=== PATIENT | female | born 1975 | race Caucasian/White ===

== ENCOUNTER 2017-04-15 09:46 | Emergency (ER) | payer SELFPAY ==
[2017-04-15 09:58] VITALS: BMI 22.3
--- NOTE | 2017-04-15 09:59 | PDOC ---
History of Present Illness - General History Source: Patient Exam Limitations: No Limitations - History of Present Illness Initial Comments: 04/15/17 10:15 The patient is a 41 year old female with no significant past medical history, presenting to the Emergency Department with intermittent chest pain since this morning. The patient reports that she was woken from sleep with chest pain that she describes as a tight and stabbing pain at her mid chest, or under her breasts, radiating to her back. She admits that certain movements or positions exacerbates the pain. She denies any alleviating factors. She also admits to slight shortness of breath, lightheadedness, nausea, and night sweats. She denies previously experiencing similar chest pain. The patient states that she has an IUD. The patient denies fever, or cough. Patient denies palpitations. Patient denies vomiting, or diarrhea. Patient denies headache, or visual changes. Familial Hx: hypertension Social Hx: everyday cigarette smoker, 1/2 PPD Surgical Hx: appendectomy <Ni Downing - Last Filed: 04/15/17 10:50> <Ceci Box - Last Filed: 04/15/17 11:14> - General Chief Complaint: Chest Pain Stated Complaint: CHEST PAIN Time Seen by Provider: 04/15/17 09:59 Past History <Ni Downing - Last Filed: 04/15/17 10:50> - Past Medical History Other medical history: NONE - Immunization History Immunization Up to Date: Yes - Psycho/Social/Smoking Cessation Hx Anxiety: No Suicidal Ideation: No Smoking History: Current every day smoker Number of Cigarettes Smoked Daily: 10 Information on smoking cessation initiated: Yes 'Breaking Loose' booklet given: 04/15/17 Hx Alcohol Use: Yes (SOCIAL) Drug/Substance Use Hx: No Substance Use Type: None <Ceci Box - Last Filed: 04/15/17 11:14> - Past Medical History Allergies/Adverse Reactions: Allergies Allergy/AdvReac Type Severity Reaction Status Date / Time No Known Allergies Allergy Verified 04/15/17 09:53 Home Medications: Ambulatory Orders NK [No Known Home Medication] 04/15/17 Review of Systems - Review of Systems Able to Perform ROS?: Yes Comments:: 04/15/17 10:16 CONSTITUTIONAL: Present: + night sweats, + lightheadedness Absent: fever, no fatigue EYES: Absent: visual changes ENT: Absent: ear pain, no sore throat CARDIOVASCULAR: Present: + intermittent chest pain Absent: no palpitations RESPIRATORY: Present: + shortness of breath Absent: cough GI: Present: + nausea Absent: abdominal pain, no vomiting, no constipation, no diarrhea GENITOURINARY: Absent: dysuria, no frequency, no hematuria MUSCULOSKELETAL: Absent: back pain, no arthralgia, no myalgia SKIN: Absent: rash NEURO: Absent: headache <Ni Downing - Last Filed: 04/15/17 10:50> *Physical Exam - Vital Signs Last Vital Signs Temp Pulse Resp BP Pulse Ox 98.2 F 75 20 147/73 100 04/15/17 09:47 04/15/17 09:47 04/15/17 09:47 04/15/17 09:47 04/15/17 09:47 - Physical Exam Comments: GENERAL: Well developed, well nourished. Awake and alert. No acute distress. HEENT: Normocephalic, atraumatic. PERRLA, EOMI. No conjunctival pallor. Sclera are non- icteric. Moist mucous membranes. Oropharynx is clear. NECK: Supple. Full ROM. No JVD. Carotid pulses 2+ and symmetric, without bruits. No thyromegaly. No lymphadenopathy. CARDIOVASCULAR: Regular rate and rhythm. No murmurs, rubs, or gallops. Distal pulses are 2+ and symmetric. PULMONARY: No evidence of respiratory distress. Lungs clear to auscultation bilaterally. No wheezing, rales or rhonchi. ABDOMINAL: Soft. Non-tender. Non-distended. No rebound or guarding. No organomegaly. Normoactive bowel sounds. MUSCULOSKELETAL Normal range of motion at all joints. No bony deformities or tenderness. No CVA tenderness. EXTREMITIES: No cyanosis. No clubbing. No edema. No calf tenderness. SKIN: Warm and dry. Normal capillary refill. No rashes. No jaundice. NEUROLOGICAL: Alert, awake, appropriate. No focal neurological deficits. <Ni Downing - Last Filed: 04/15/17 10:50> - Vital Signs Last Vital Signs Temp Pulse Resp BP Pulse Ox 98.2 F 75 20 147/73 100 04/15/17 09:47 04/15/17 09:47 04/15/17 09:47 04/15/17 09:47 04/15/17 09:47 <Ceci Box - Last Filed: 04/15/17 11:14> Heart Score/ECG Review #1 ECG reviewed & interpreted by me at: 10:50 (EKG reviewed by Dr. Box, EKG normal, sinus rhythm normal, axis normal, rate normal) <Ni Downing - Last Filed: 04/15/17 10:50> Medical Decision Making - Medical Decision Making 04/15/17 10:41 Pt presents to the ED complaining of a one day history of pleuritic chest pain. Perc negative. Heart score is 0. Pain is most likely musculoskeletal. Patient is at extremely low risk for serious cardiopulmonay disease. Will check CXR and discharge home if cxr is negative. <Ceci Box - Last Filed: 04/15/17 11:14> *DC/Admit/Observation/Transfer - Attestations Scribe Attestion: 04/15/17 10:18 Documentation prepared by Ni Downing, acting as medical microbiologist for Ceci Box MD. <Ni Downing - Last Filed: 04/15/17 10:50> - Discharge Dispostion Admit: No <Ceci Box - Last Filed: 04/15/17 11:14> Diagnosis at time of Disposition: Chest pain Qualifiers: Chest pain type: precordial pain Qualified Code(s): R07.2 - Precordial pain - Discharge Dispostion Disposition: HOME Condition at time of disposition: Good - Patient Instructions Printed Discharge Instructions: DI for Atypical Chest Pain Additional Instructions: Return to the ED for severe chest pain or shortness of breath, passing out. Make sure you follow up with your doctor within one week.
[2017-04-15] MEDS ORDERED: KETOROLAC TROMETHAMINE 60 MG/2 ML VIAL IM ONE (10:16)
[2017-04-15] MEDS ORDERED: KETOROLAC TROMETHAMINE 60 MG/2 ML VIAL ONE (10:46)
[2017-04-15 11:19] VITALS: BP 132/65; PULSE 70; TEMP 97.8
--- NOTE | 2017-04-16 13:29 | EKG ---
Test Reason : Blood Pressure : / mmHG Vent. Rate : 062 BPM Atrial Rate : 062 BPM P-R Int : 136 ms QRS Dur : 084 ms QT Int : 414 ms P-R-T Axes : 053 028 037 degrees QTc Int : 420 ms NORMAL SINUS RHYTHM WITH SINUS ARRHYTHMIA NORMAL ECG NO PREVIOUS ECGS AVAILABLE Confirmed by RODRÍGUEZ GREEN MD ([id number]) on 04/16/2017 1:29:24 PM Referred By: Confirmed By:RODRÍGUEZ GREEN MD
== END 2017-04-15 11:19 | disposition home or self-care (01) ==
LOC: JER 09:46
PROC: 3E0233Z Introduction of Anti-inflammatory into Muscle, Percutaneous Approach (ICD-10-PCS; principal; 2017-04-15)
DX: R07.2 Precordial pain (principal); F17.210 Nicotine dependence, cigarettes, uncomplicated
CPT/HCPCS: 71020-TC; 84703; 93005; 93010; 99283-25

== ENCOUNTER 2017-10-31 11:17 | Emergency (ER) | payer OTHER ==
[2017-10-31 11:41] VITALS: BP 114/81; PULSE 111; TEMP 99; BMI 23.3
--- NOTE | 2017-10-31 13:48 | PDOC ---
History of Present Illness - General Chief Complaint: Cold Symptoms Stated Complaint: EAR PROBLEM, BACK PAIN Time Seen by Provider: 10/31/17 12:27 History Source: Patient Exam Limitations: No Limitations - History of Present Illness Initial Comments: 10/31/17 13:44 42 yr female no PMHX c/o body aches fever, sore throat for 3 days. no abd pain neg nvd. Past History - Past Medical History Allergies/Adverse Reactions: Allergies Allergy/AdvReac Type Severity Reaction Status Date / Time No Known Allergies Allergy Verified 10/31/17 11:38 Home Medications: Ambulatory Orders Oseltamivir Phosphate [Tamiflu] 75 mg PO BID #10 capsule 10/31/17 COPD: No DVT: No Dementia: No Diabetes: No - Surgical History GI Surgery: Yes (appendectomy) - Immunization History Immunization Up to Date: Yes - Suicide/Smoking/Psychosocial Hx Smoking History: Current every day smoker Number of Cigarettes Smoked Daily: 10 Information on smoking cessation initiated: No 'Breaking Loose' booklet given: 04/15/17 Hx Alcohol Use: No Drug/Substance Use Hx: No Substance Use Type: None *Physical Exam - Vital Signs Last Vital Signs Temp Pulse Resp BP Pulse Ox 99.0 F 111 H 15 114/81 99 10/31/17 11:38 10/31/17 11:38 10/31/17 11:38 10/31/17 11:38 10/31/17 11:38 - Physical Exam General Appearance: Yes: Nourished, Appropriately Dressed HEENT: positive: EOMI, MIK, Normal ENT Inspection, TMs Normal, Pharynx Normal Neck: positive: Supple. negative: Tender Respiratory/Chest: positive: Lungs Clear, Normal Breath Sounds. negative: Chest Tender Cardiovascular: positive: Regular Rhythm, Regular Rate Gastrointestinal/Abdominal: positive: Normal Bowel Sounds, Soft Musculoskeletal: positive: Normal Inspection Extremity: positive: Normal Capillary Refill, Normal Inspection, Normal Range of Motion Integumentary: positive: Normal Color, Dry, Warm Neurologic: positive: Fully Oriented, Alert, Normal Mood/Affect, Normal Response , Motor Strength 5/5 ED Treatment Course - ADDITIONAL ORDERS Additional order review: 10/31/17 12:45 Influenza Types A,B Antigen (SALOMÓN) - Preliminary Nasopharyngeal Swab - Preliminary Medical Decision Making - Medical Decision Making 10/31/17 13:45 cc: fever, sore throat eye pain headache for 3 days nyquil taken last night vitals stable non toxic will swab for flu *DC/Admit/Observation/Transfer Diagnosis at time of Disposition: Influenza B - Discharge Dispostion Disposition: HOME Condition at time of disposition: Fair - Prescriptions Prescriptions: Oseltamivir Phosphate [Tamiflu] 75 mg PO BID #10 capsule - Referrals Referrals: Kajal Moss MD [Primary Care Provider] - - Patient Instructions Printed Discharge Instructions: DI for Influenza -- Adult Additional Instructions: drink pleanty of fluids rest at home and avoid crowds, school, work, large gatherings avoid young babies and elderly persons wash hands often take motrin or tylenol as directed for fever or pain follow with your doctor in 1-2 days for follow up return to ER for any worsening symptoms tamiflu as directed it may cause stomach upset and diarrhea take with caution - Post Discharge Activity
== END 2017-10-31 13:51 | disposition home or self-care (01) ==
LOC: JERFT 11:17
DX: J10.1 Influenza due to other identified influenza virus with other respiratory manifestations (principal); B97.89 Other viral agents as the cause of diseases classified elsewhere
CPT/HCPCS: 87804; 99281-25

== ENCOUNTER 2018-12-24 15:02 | Emergency (ER) | payer OTHER ==
[2018-12-24 15:19] VITALS: BP 127/88; PULSE 80; TEMP 98.1; BMI 21.6
[2018-12-24 18:00] LABS: BASO % 0.7 % (0-2.0); EOS % 12.8 % (0-4.5); HEMOGLOBIN 14.5 GM/dL (10.7-15.3); LYMPH % 32.9 % (8-40); MCH 33.5 pg (25.7-33.7); MCHC 35.3 g/dl (32.0-36.0); MEAN CELL VOLUME 94.7 fl (80-96); MEAN PLT VOLUME 8.7 fl (7.5-11.1); NEUT % 43.6 % (42.8-82.8); PLATELET COUNT 217 K/MM3 (134-434); RBC 4.33 M/mm3 (3.60-5.2); RDW 12.6 % (11.6-15.6); WHITE BLOOD COUNT 6.8 K/mm3 (4.0-10.0)
[2018-12-24 18:20] LABS: ALBUMIN 3.4 g/dl (3.4-5.0); ALK PHOS 59 U/L (45-117); ANION GAP 3 MMOL/L (8-16); BILIRUBIN,TOTAL 0.8 mg/dL (0.2-1); BLOOD UREA NITROGEN 18 mg/dL (7-18); CALCIUM 8.3 mg/dL (8.5-10.1); CHLORIDE 108 mmol/L (98-107); CO2 28 mmol/L (21-32); CREATININE 0.6 mg/dL (0.55-1.3); GLUCOSE,RANDOM 73 mg/dL (74-106); POTASSIUM 3.8 mmol/L (3.5-5.1); SGOT/AST 22 U/L (15-37); SGPT/ALT 25 U/L (13-61); SODIUM 139 mmol/L (136-145); TOT PROT 6.5 g/dl (6.4-8.2)
[2018-12-24 18:24] LABS: EPI CELLS 0.6 /HPF (0-5); HYALINE CASTS 6 /hpf (0-8); URINE APPEARANCE CLEAR; URINE BACTERIA 8.298 /hpf (NEGATIVE); URINE BILIRUBIN NEGATIVE (NEGATIVE); URINE COLOR YELLOW; URINE GLUCOSE (UA) NEGATIVE (NEGATIVE); URINE KETONE NEGATIVE (NEGATIVE); URINE LEUK ESTERASE TRACE (NEGATIVE); URINE NITRITE NEGATIVE (NEGATIVE); URINE PROTEIN NEGATIVE (NEGATIVE); URINE RBC 2 /hpf (0-4); URINE WBC 4 /hpf (0-5)
--- NOTE | 2018-12-24 18:53 | PDOC ---
History of Present Illness - General Chief Complaint: Pain Stated Complaint: ABDOMINAL PAIN Time Seen by Provider: 12/24/18 16:20 History Source: Patient Exam Limitations: No Limitations - History of Present Illness Travel History: No Initial Comments: 12/24/18 18:47 43 y/o female presents to ED with suprapubic pain intermittently x 3-4 months with vaginal spotting for a few weeks. Pt denies Timing/Duration: reports: constant Quality: reports: mild, cramping Abdominal Pain Onset Location: reports: suprapubic Pain Radiation: reports: no radiation Aggravating Factors: improves with: None Alleviating Factors: improves with: None Past History - Travel Traveled outside of the country in the last 30 days: No Close contact w/someone who was outside of country & ill: No - Past Medical History Allergies/Adverse Reactions: Allergies Allergy/AdvReac Type Severity Reaction Status Date / Time No Known Allergies Allergy Verified 12/24/18 18:59 Home Medications: Ambulatory Orders NK [No Known Home Medication] 12/24/18 COPD: No DVT: No Dementia: No Diabetes: No - Surgical History GI Surgery: Yes (appendectomy) - Immunization History Immunization Up to Date: Yes - Suicide/Smoking/Psychosocial Hx Smoking History: Current every day smoker Number of Cigarettes Smoked Daily: 5 Information on smoking cessation initiated: No 'Breaking Loose' booklet given: 04/15/17 Hx Alcohol Use: No Drug/Substance Use Hx: No Substance Use Type: None Patient Lives Alone: No Lives with/in: spouse/SO Review of Systems - Review of Systems Able to Perform ROS?: No Is the patient limited Syrian proficient: No Constitutional: No: Symptoms Reported HEENTM: No: Symptoms Reported Respiratory: No: Symptoms reported Cardiac (ROS): No: Symptoms Reported ABD/GI: Yes: Abdominal cramping. No: Poor Appetite, Poor Fluid Intake : No: Symptoms Reported Musculoskeletal: No: Symptoms Reported Integumentary: No: Symptoms Reported Neurological: No: Symptoms reported Endocrine: No: Symptoms Reported Hematologic/Lymphatic: No: Symptoms Reported *Physical Exam - Vital Signs Last Vital Signs Temp Pulse Resp BP Pulse Ox 98.1 F 80 16 127/88 99 12/24/18 15:16 12/24/18 15:16 12/24/18 15:16 12/24/18 15:16 12/24/18 15:16 - Physical Exam General Appearance: Yes: Nourished, Appropriately Dressed. No: Apparent Distress HEENT: positive: EOMI, MIK. negative: Pale Conjunctivae Neck: positive: Supple Respiratory/Chest: positive: Lungs Clear, Normal Breath Sounds. negative: Respiratory Distress, Accessory Muscle Use Cardiovascular: positive: Regular Rhythm, Regular Rate. negative: Murmur Female Pelvic Exam: positive: normal external exam. negative: CMT, discharge, adnexal tenderness, vaginal bleeding Gastrointestinal/Abdominal: positive: Soft, Tenderness (mid suprapubic) Musculoskeletal: negative: CVA Tenderness Extremity: positive: Normal Capillary Refill Integumentary: positive: Normal Color, Warm, Moist Neurologic: positive: Motor Strength 5/5 (ambulatory) ED Treatment Course - LABORATORY CBC & Chemistry Diagram: 12/24/18 17:25 12/24/18 17:25 - ADDITIONAL ORDERS Additional order review: Laboratory Results 12/24/18 12/24/18 12/24/18 17:25 17:25 06:31 Sodium 139 Potassium 3.8 Chloride 108 H Carbon Dioxide 28 Anion Gap 3 L BUN 18 Creatinine 0.6 Creat Clearance w eGFR 109.11 Random Glucose 73 L Calcium 8.3 L Total Bilirubin 0.8 AST 22 ALT 25 Alkaline Phosphatase 59 Total Protein 6.5 Albumin 3.4 Urine Color Yellow Urine Appearance Clear Urine pH 7.0 D Ur Specific [place] 1.022 Urine Protein Negative Urine Glucose (UA) Negative Urine Ketones Negative Urine Blood Negative Urine Nitrite Negative Urine Bilirubin Negative Urine Urobilinogen 1.0 Ur Leukocyte Esterase Trace Urine WBC (Auto) 4 Urine RBC (Auto) 2 Urine Casts (Auto) 6 U Epithel Cells (Auto) 0.6 Urine Bacteria (Auto) 8.298 Urine HCG, Qual Negative 12/24/18 17:25 RBC 4.33 MCV 94.7 MCHC 35.3 RDW 12.6 MPV 8.7 Neutrophils % 43.6 D Lymphocytes % 32.9 D Monocytes % 10.0 Eosinophils % 12.8 H D Basophils % 0.7 - RADIOLOGY Radiology Studies Ordered: Category Date Time Status TRANSVAGINAL ULTRASOUND US [US] Stat Ultrasound 12/24/18 17:18 Taken Medical Decision Making - Medical Decision Making 12/24/18 18:06 CC: lower abd cramping intermittently x 3-4 months with light brown vaginal discharge x 2 weeks Exam: Mild suprapubic tenderness with no vag discharge Plan: Ua, hcg, labs, u/s 12/24/18 19:01 Laboratory Tests 12/24/18 12/24/18 12/24/18 06:31 17:25 17:25 WBC 6.8 Hgb 14.5 Hct 41.0 Neutrophils % 43.6 D Sodium 139 Potassium 3.8 Chloride 108 H Carbon Dioxide 28 Anion Gap 3 L BUN 18 Creatinine 0.6 Creat Clearance w eGFR 109.11 Random Glucose 73 L Calcium 8.3 L Total Bilirubin 0.8 AST 22 ALT 25 Alkaline Phosphatase 59 Total Protein 6.5 Albumin 3.4 Urine Ketones Negative Urine Bilirubin Negative Ur Leukocyte Esterase Trace Urine HCG, Qual 12/24/18 17:25 WBC Hgb Hct Neutrophils % Sodium Potassium Chloride Carbon Dioxide Anion Gap BUN Creatinine Creat Clearance w eGFR Random Glucose Calcium Total Bilirubin AST ALT Alkaline Phosphatase Total Protein Albumin Urine Ketones Urine Bilirubin Ur Leukocyte Esterase Urine HCG, Qual Negative Ultrasound shows no acute findings. Recommended to take motrin and f/u with [facility] [employer] [facility]. *DC/Admit/Observation/Transfer Diagnosis at time of Disposition: Abdominal pain - Discharge Dispostion Disposition: HOME Condition at time of disposition: Good - Referrals - Patient Instructions Printed Discharge Instructions: DI for Abdominal Pain-Adult Additional Instructions: Please take Motrin 600mg for pain. Follow up with your [facility] [facility] [facility]. - Post Discharge Activity Forms/Work/School Notes: Back to Work
== END 2018-12-24 19:16 | disposition home or self-care (01) ==
LOC: JER 15:02
DX: R10.30 Lower abdominal pain, unspecified (principal)
CPT/HCPCS: 36415; 76830-TC; 80053; 81003; 84703; 85025; 87086; 99283-25

== ENCOUNTER 2020-10-06 10:51 | Emergency (ER) | payer OTHER ==
[2020-10-06 11:30] VITALS: BP 134/82; PULSE 88; TEMP 98; BMI 25.7
[2020-10-06 12:44] LABS: BASO % 0.7 % (0-2.0); EOS % 6.2 % (0-4.5); HEMATOCRIT 29.9 % (32.4-45.2); HEMOGLOBIN 9.9 GM/dL (10.7-15.3); LYMPH % 23.7 % (8-40); MCH 28.7 pg (25.7-33.7); MCHC 33.1 g/dl (32.0-36.0); MEAN CELL VOLUME 86.7 fl (80-96); MEAN PLT VOLUME 8.7 fl (7.5-11.1); MONO % 8.3 % (3.8-10.2); NEUT % 61.1 % (42.8-82.8); PLATELET COUNT 232 K/MM3 (134-434); RBC 3.45 M/mm3 (3.60-5.2); RDW 16.6 % (11.6-15.6); WHITE BLOOD COUNT 4.2 K/mm3 (4.0-10.0)
[2020-10-06 13:08] LABS: ALBUMIN 3.4 g/dl (3.4-5.0); BLOOD UREA NITROGEN 10.4 mg/dL (7-18); CALCIUM 8.5 mg/dL (8.5-10.1)
[2020-10-06 13:12] LABS: CREATININE 0.8 mg/dL (0.55-1.3)
[2020-10-06 13:13] LABS: BILIRUBIN,TOTAL 0.7 mg/dL (0.2-1); TOT PROT 6.3 g/dl (6.4-8.2)
[2020-10-06 13:18] LABS: EPI CELLS 10 /uL (0-25.1); HCG,QUALITATIVE URINE Negative; HYALINE CASTS 1 /uL (0-3.1); PH,URINE 5.5 (5.0-8.0); URINE APPEARANCE CLEAR; URINE BACTERIA 494 /uL (0-1359); URINE BILIRUBIN NEGATIVE (NEGATIVE); URINE COLOR DK YELLOW; URINE GLUCOSE (UA) NEGATIVE (NEGATIVE); URINE KETONE TRACE (NEGATIVE); URINE LEUK ESTERASE NEGATIVE (NEGATIVE); URINE NITRITE NEGATIVE (NEGATIVE); URINE PROTEIN NEGATIVE (NEGATIVE); URINE RBC 8 /uL (0-23.9); URINE WBC 4 /uL (0-25.8)
== END 2020-10-06 15:42 | disposition home or self-care (01) ==
LOC: JER 10:51
DX: N93.8 Other specified abnormal uterine and vaginal bleeding (principal)
CPT/HCPCS: 36415; 76830-TC; 80053; 81003; 84703; 85025; 87077; 87086; 99284-25

== ENCOUNTER 2022-03-10 19:53 | Emergency (ER) | payer OTHER ==
[2022-03-10 20:09] VITALS: BP 124/82; PULSE 90; TEMP 98.1; BMI 25.0
[2022-03-10] MEDS ORDERED: IBUPROFEN 600 MG TABLET (FP) PO ONE ×2 (20:23→20:35)
[2022-03-10] MEDS ORDERED: CYCLOBENZAPRINE HCL 10 MG TABLET (FP) PO ONE (20:24)
[2022-03-10] MEDS ORDERED: CYCLOBENZAPRINE HCL 10 MG TABLET (FP) ONE (20:35)
== END 2022-03-10 20:43 | disposition home or self-care (01) ==
LOC: JERFT 19:53
DX: M62.838 Other muscle spasm (principal)
CPT/HCPCS: 99283-25

== ENCOUNTER 2023-10-18 10:37 | Emergency (ER) | payer OTHER ==
[2023-10-18 10:45] VITALS: TEMP 98.1; BMI 25.7
[2023-10-18] MEDS ORDERED: KETOROLAC TROMETHAMINE 15 MG/ML VIAL IVPUSH ONE (11:35)
[2023-10-18] MEDS ORDERED: KETOROLAC TROMETHAMINE 15 MG/ML VIAL ONE (12:04)
[2023-10-18 12:44] LABS: BASO % 0.5 % (0-2.0); HEMATOCRIT 30.1 % (32.4-45.2); HEMOGLOBIN 9.7 GM/dL (10.7-15.3); LYMPH % 31.2 % (8-40); MCH 27.5 pg (25.7-33.7); MCHC 32.4 g/dl (32.0-36.0); MEAN PLT VOLUME 7.9 fl (7.5-11.1); MONO % 4.7 % (3.8-10.2); NEUT % 53.6 % (42.8-82.8); PLATELET COUNT 269 10^3/uL (134-434); RBC 3.54 M/mm3 (3.60-5.2); RDW 18.2 % (11.6-15.6); WHITE BLOOD COUNT 4.4 K/mm3 (4.0-10.0)
[2023-10-18 12:48] LABS: INR 1.06 (0.83-1.09); PROTHROMBIN TIME (PATIENT) 12.3 SEC (9.7-13.0)
[2023-10-18 12:51] LABS: ACTIVATED PTT 26.9 SECONDS (25.2-36.5)
[2023-10-18 13:09] LABS: POTASSIUM 3.7 mmol/L (3.5-5.1)
[2023-10-18 13:10] LABS: CALCIUM 8.2 mg/dL (8.5-10.1)
[2023-10-18 13:12] LABS: BLOOD UREA NITROGEN 11.2 mg/dL (7-18)
[2023-10-18 13:15] LABS: BILIRUBIN,TOTAL 0.4 mg/dL (0.2-1); CREATININE 0.7 mg/dL (0.55-1.3); TOT PROT 6.2 g/dl (6.4-8.2)
[2023-10-18 13:39] LABS: HCG,QUALITATIVE URINE Negative
[2023-10-18 14:07] LABS: URINE COLOR YELLOW
[2023-10-18 14:08] LABS: URINE APPEARANCE BLOODY
[2023-10-18 14:09] LABS: URINE GLUCOSE (UA) NEGATIVE (NEGATIVE)
[2023-10-18 14:10] LABS: URINE BILIRUBIN NEGATIVE (NEGATIVE)
[2023-10-18 14:15] LABS: URINE PROTEIN 2+ (NEGATIVE)
[2023-10-18 16:52] VITALS: BP 120/87; PULSE 83; RESP 18
== END 2023-10-18 16:52 | disposition home or self-care (01) ==
LOC: JER 10:37
PROC: 3E0333Z Introduction of Anti-inflammatory into Peripheral Vein, Percutaneous Approach (ICD-10-PCS; principal; 2023-10-18)
DX: N93.9 Abnormal uterine and vaginal bleeding, unspecified (principal); R10.2 Pelvic and perineal pain
CPT/HCPCS: 36415; 76830-TC; 80053; 81003; 83605; 84703; 85025; 85610; 85730; 86850; 86900; 86901; 99284-25

== ENCOUNTER 2024-12-21 15:50 | Emergency (ER) | payer BC, OTHER ==
[2024-12-21 16:14] VITALS: BP 121/81; PULSE 90; RESP 18; TEMP 98.7; BMI 26.6
[2024-12-21] MEDS ORDERED: IBUPROFEN 400 MG TABLET (FP) PO ONE (17:20)
[2024-12-21] MEDS ORDERED: CycloBENZAprine HCL 10 MG TABLET (FP) ONE (17:20)
[2024-12-21] MEDS ORDERED: LIDOCAINE 4% PATCH TP ONE (17:20)
[2024-12-21] MEDS: IBUPROFEN 400 MG TABLET (FP) PO ONE (17:27)
[2024-12-21] MEDS: CycloBENZAprine HCL 10 MG TABLET (FP) PO ONE (17:27)
[2024-12-21] MEDS: LIDOCAINE 5% TOPICAL PATCH TP ONE (17:27)
[2024-12-21] MEDS ORDERED: LIDOCAINE PATCH REMOVAL MC SCH (22:00)
== END 2024-12-21 18:35 | disposition home or self-care (01) ==
LOC: JERFT 15:50 → JER 15:50 → JERFT 18:35
DX: M62.838 Other muscle spasm (principal); M25.512 Pain in left shoulder; M54.6 Pain in thoracic spine
CPT/HCPCS: 72040-TC; 73030-TC-LT-FY; 93005; 93010; 99284-25